=== PATIENT | female | born 1955 | race Caucasian/White ===

== ENCOUNTER → 2017-06-07 | Outpatient (CLI) | payer OTHER ==
[~2017-06-07] MED LIST: METHOTREXA2.5 MG/TAB PO; NORCO 325 MG-51 TAB PO
== END ==
LOC: MC.RAD 06-06 10:20
DX: Z12.31 Encounter for screening mammogram for malignant neoplasm of breast (principal); N64.89 Other specified disorders of breast

== ENCOUNTER → 2017-06-23 | Outpatient (CLI) | payer OTHER | LOC: MC.RAD 10:49 | DX: R92.2 Inconclusive mammogram (principal) ==

== ENCOUNTER → 2019-07-17 | Outpatient (CLI) | payer BC | LOC: MC.RAD 07:30 | DX: Z12.31 Encounter for screening mammogram for malignant neoplasm of breast (principal); R92.0 Mammographic microcalcification found on diagnostic imaging of breast ==

== ENCOUNTER → 2019-07-19 | Outpatient (CLI) | payer BC | LOC: MC.RAD 13:58 | DX: R92.0 Mammographic microcalcification found on diagnostic imaging of breast (principal) ==

== ENCOUNTER → 2020-02-13 | Outpatient (CLI) | payer BC | LOC: MC.RAD 13:57 | DX: R92.1 Mammographic calcification found on diagnostic imaging of breast (principal) ==